=== PATIENT | male | born 1990 | race Caucasian/White ===

== ENCOUNTER 2019-02-25 14:27 | Emergency (ER) | payer OTHER ==
[~2019-02-25] VITALS: Ht 175.3 cm; Wt 81.2 kg
[2019-02-25 14:35] VITALS: BP_SYST 124
--- NOTE | 2019-02-25 14:56 | NUR ---
Patient to ER bed 8 to gown for evaluation. Side rails up. Assumed care.
--- NOTE | 2019-02-25 14:58 | NUR ---
Patient arrived to ED, he is working within the facility. Patient states abscess to left side of face, near jawline. Patient states he has had an abscess there previously, and he has had surgery to that side of his jaw also for repair of jaw and has an exposed screw. Patient states over the past 2 days, pain has worsened. Pain is non radiating and sharp. Swelling and redness present. Patient states no fever, chills, vomiting, diarrhea, difficulty swallowing, or earpain. Will continue to follow up and monitor.
[2019-02-25] MEDS ORDERED: LIDOCAINE 2%, 20 ML MDV INJ ONE (15:00)
[2019-02-25] MEDS ORDERED: CEPHALEXIN 500 MG CAPSULE PO ONE (15:00)
[2019-02-25] MEDS ORDERED: SULFAMETHOXAZOLE/TRIMETHOPR DS 1 TABLET PO ONE (15:00)
--- NOTE | 2019-02-25 15:00 | NUR ---
KARI Santa at bedside examining patient.
[2019-02-25] MEDS ORDERED: LIDOCAINE 2%, 20 ML MDV ONE (15:16)
--- NOTE | 2019-02-25 15:16 | NUR ---
at bedside for I&D.
[2019-02-25 15:38] VITALS: BP_SYST 124
--- NOTE | 2019-02-25 15:38 | NUR ---
Patient given written and verbal discharge instructions and verbalizes understanding. ER MD discussed with patient the results and treatment provided. Patient in stable condition. ID arm band removed. Rx of Ibuprofen, Bactrim, Keflex given. Patient educated on pain management and to follow up with PMD. Pain Scale 0/10. Opportunity for questions provided and answered. Medication side effect fact sheet provided.
[2019-02-25] MEDS ORDERED: BACITRACIN 1 GM OINT TP ONE (15:40)
== END 2019-02-25 15:38 | disposition home or self-care (01) ==
LOC: SED 14:27
DX: M27.2 Inflammatory conditions of jaws (principal); F12.90 Cannabis use, unspecified, uncomplicated
CPT/HCPCS: 10060; 99283; J2001